=== PATIENT | female | born 1945 | race Hispanic/Latino ===

== ENCOUNTER 2016-07-05 10:30 | Outpatient (CLI) | payer MEDICARE, OTHER ==
--- NOTE | 2016-07-05 12:47 | RAD ---
TWO VIEW CHEST: Clinical history: Chronic cough for twenty years. FINDINGS: There are mild interstitial densities at the lower lung zones. Mild biapical pleural irregularity i s present. Cardiac silhouette is within normal limits of size. No vascular congestion. IMPRESSION: No focal consolidation. POS: [facility]
== END 2016-07-05 10:31 | disposition home or self-care (01) ==
LOC: MADRAD 10:30
PROVIDERS: ATTEND Family Medicine
DX: R05 Cough (principal)
CPT/HCPCS: 71020

== ENCOUNTER 2017-09-30 14:11 | Outpatient (CLI) | payer MEDICARE, OTHER ==
[2017-09-30 14:35] LABS: #Basophils 0.1 thou/uL (0.0-0.2); #Eosinphils 0.1 thou/uL (0.0-0.7); #Lymphocytes 2.1 thou/uL (1.20-3.40); #Monocytes 0.4 thou/uL (0.11-0.59); #Neutrophils 3.2 thou/uL (1.40-6.50); %Basophils 1.2 % (0.0-1.0); %Lymphocytes 35.5 % (21.0-51.0); %Monocytes 6.9 % (0.0-10.0); %Neutrophils 54.5 % (42.0-75.0); Hemoglobin 12.3 g/dL (12.0-16.0); Mean Corpuscular HGB CONC 32.6 g/dL (32.0-36.0); Mean Corpuscular Hemoglobin 30.8 pg (27.0-31.0); Mean Corpuscular Volume 94.2 fl (81.0-99.0); Mean Platelet Volume 5.5 fL (7.4-10.4); Platelet Count 256 thou/uL (130-400); RBC Distribution Width 11.8 % (11.5-14.5); Red Blood Cell (RBC) Count 3.98 mill/uL (4.20-5.40); White Blood Cell (WBC) Count 5.8 thou/uL (4.8-10.8)
[2017-09-30 14:51] LABS: ALT (SGPT) 27 U/L (8-55); AST (SGOT) 22 U/L (5-34); Albumin 4.2 g/dL (3.4-4.8); Alkaline Phosphatase 59 U/L (40-150); Anion Gap 15 mmol/L (10-20); BUN (Urea Nitrogen) 13 mg/dL (9.8-20.1); Bilirubin, Total 0.4 mg/dL (0.2-1.2); Calc. Creatinine Clearance 0 mL/min (70-130); Calcium 9.6 mg/dL (7.8-10.44); Carbon Dioxide 24 mmol/L (23-31); Cardiac Risk 3.2 (Less than 4.5); Chloride 107 mmol/L (98-107); Cholesterol 216 mg/dl (< 200 Desired); Estimated GFR-MDRD 80; Globulin 2.8 g/dL (2.4-3.5); Glucose 98 mg/dL (80-115); HDL Cholesterol 67 mg/dL (>60 Neg Risk); LDL Cholesterol, Calculated 126 mg/dL; Potassium 3.8 mmol/L (3.5-5.1); Sodium 142 mmol/L (136-145); Triglycerides 114 mg/dL (Less than 150)
== END 2017-09-30 14:12 | disposition home or self-care (01) ==
LOC: MADLABSP 14:11 → MADLABBHPM 14:12
PROVIDERS: ATTEND Family Medicine
DX: Z13.220 Encounter for screening for lipoid disorders (principal); E78.00 Pure hypercholesterolemia, unspecified; K21.9 Gastro-esophageal reflux disease without esophagitis
CPT/HCPCS: 36415; 80053; 80061; 85025